=== PATIENT | male | born 1950 | race American Indian/Alaskan Native ===

== ENCOUNTER 2017-12-24 13:42 | Emergency (ER) | payer MEDICARE ==
[2017-12-24 13:42] VITALS: BMI 24.4
[2017-12-24 14:20] VITALS: TEMP 98.3; O2SAT 99
[2017-12-24 16:00] LABS: BASO % 1.2 % (0.0-2.0); EOS # 0.1 K/uL (0.0-0.7); EOS % 1.9 % (0.0-4.0); HEMOGLOBIN 14.4 g/dL (12.0-18.0); LYMPH % 52.9 % (20.0-40.0); MEAN CELL VOLUME 90.2 fl (80.0-94.0); MEAN CORPUSCULAR HGB CONC 33.3 g/dL (33.0-37.0); MEAN PLATELET VOLUME 9.1 fl (7.2-11.7); MONO # 0.4 K/uL (0.0-0.8); NEUT # 1.2 K/uL (1.8-7.0); NRBC % 0.1 % (0.0-0.0); RBC 4.79 Mil/uL (4.40-5.90); WHITE BLOOD COUNT 3.7 K/uL (4.8-10.8)
--- NOTE | 2017-12-24 16:12 | ED PDOC ---
Upper Extremity Pain/Injury Time Seen by Provider: 12/24/17 15:01 Chief Complaint (Nursing): Upper Extremity Problem/Injury Chief Complaint (Provider): Upper Extremity Problem/Injury History Per: Patient History/Exam Limitations: no limitations Onset/Duration Of Symptoms: Days (x3) Additional Complaint(s): Patient is a 67 y/o male with no significant past medical history who presents to the ED complaining of left arm pain, onset x3 day ago. Patient reports he has a pain in his upper left arm radiating into his forearm. Patient describes the pain as a throbbing, consistent pain that is not worsened or made better with anything. He denies any weakness, numbness, or recent injury. He also denies chest pain, difficulty breathing, or other medical complaints. 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 Past Medical History Reviewed: Historical Data, Nursing Documentation, Vital Signs Vital Signs: Last Vital Signs Temp 98.3 F 12/24/17 14:17 Pulse 64 12/24/17 14:17 Resp 16 12/24/17 14:17 BP 131/77 12/24/17 14:17 Pulse Ox 99 12/24/17 14:17 - Medical History PMH: No Chronic Diseases Denies: Depression - Surgical History Surgical History: No Surg Hx - Family History Family History: States: Unknown Family Hx - Home Medications Home Medications: Ambulatory Orders Medication Instructions Recorded Aspirin/Butalbital/Caffeine 1 cap PO QID PRN #12 cap 08/10/11 [Fiorinal 325 mg-50 mg-40 mg] Gabapentin 300 mg PO TID #21 capsule 12/24/17 - Allergies Allergies/Adverse Reactions: Allergies Allergy/AdvReac Type Severity Reaction Status Date / Time Penicillins Allergy SWELLING Verified 12/24/17 14:20 Review of Systems ROS Statement: Except As Marked, All Systems Reviewed And Found Negative Cardiovascular: Negative for: Chest Pain Respiratory: Negative for: Shortness of Breath Musculoskeletal: Positive for: Arm Pain Neurological: Negative for: Weakness, Numbness Physical Exam - Reviewed Nursing Documentation Reviewed: Yes Vital Signs Reviewed: Yes - Physical Exam Appears: Positive for: Well, Non-toxic, No Acute Distress Head Exam: Positive for: ATRAUMATIC, NORMAL INSPECTION, NORMOCEPHALIC Skin: Positive for: Normal Color, Warm, DRY Eye Exam: Positive for: EOMI, Normal appearance, PERRL ENT: Positive for: Normal ENT Inspection Neck: Positive for: Normal, Painless ROM, Supple Cardiovascular/Chest: Positive for: Regular Rate, Rhythm. Negative for: Murmur Respiratory: Positive for: Normal Breath Sounds. Negative for: Respiratory Distress Gastrointestinal/Abdominal: Positive for: Normal Exam, Soft. Negative for: Tenderness Extremity: Positive for: Normal ROM. Negative for: Pedal Edema, Deformity Neurologic/Psych: Positive for: Alert, Oriented. Negative for: Motor/Sensory Deficits - Laboratory Results Result Diagrams: 12/24/17 15:40 12/24/17 15:40 - ECG ECG Rhythm: Positive for: Normal QRS, Normal ST Segment, Sinus Bradycardia Rate: 55 O2 Sat by Pulse Oximetry: 99 (RA) Pulse Ox Interpretation: Normal - Progress Re-evaluation Time: 16:58 Condition: Re-examined, Improved Medical Decision Making Medical Decision Making: Time: 15:15 Initial Impression: left arm pain Differential includes peripheral neuropathy, atypical ACS Initial Plan: EKG BMP Troponin I CBC w/ diff Time: 15:56 EKG: Sinus bradycardia at rate of 55 bpm. Normal QRS no ST changes. Scribe Attestation: Documented by Greg Rodríguez acting as a scribe for Toma Reis MD Provider Scribe Attestation: All medical record entries made by the Scribe were at my direction and pers onally dictated by me. I have reviewed the chart and agree that the record accurately reflects my personal performance of the history, physical exam, medical decision making, and the department course for this patient. I have also personally directed, reviewed, and agree with the discharge instructions and disposition. Disposition - Clinical Impression Clinical Impression: Arm pain, left - Patient ED Disposition Is Patient to be Admitted: No Doctor Will See Patient In The: Office Counseled Patient/Family Regarding: Studies Performed, Diagnosis - Disposition Referrals: [facility] [place] [Outside] Disposition: Routine/Home Disposition Time: 16:59 Condition: GOOD Additional Instructions: JT WHITTEN, thank you for letting us take care of you today. Your provider was Toma Reis MD and you were treated for LT ARM PAIN. The emergency medical care you received today was directed at your acute symptoms. If you were prescribed any medication, please fill it and take as directed. It may take several days for your symptoms to resolve. Return to the Emergency Department if your symptoms worsen, do not improve, or if you have any other problems. Please contact your doctor or call one of the physicians/clinics you have been referred to that are listed on the Patient Visit Information form that is included in your discharge packet. Bring any paperwork you were given at discharge with you along with any medications you are taking to your follow up visit. Our treatment cannot replace ongoing medical care by a primary care provider outside of the emergency department. Thank you for allowing the [facility] team to be part of your care today. If you had an X-Ray or CT scan: A Radiologist will review the ED reading if any change in treatment is needed we will contact you. If you had a blood, urine, or wound culture: It will take several days for the results, if any change in treatment is needed we will contact you. If you had an STI test: It will take 48 hours for the results. Please call after 1 week if you have not heard back. Prescriptions: Gabapentin 300 mg PO TID #21 capsule Instructions: Muscle and Bone Pain (DC)
[2017-12-24 16:16] LABS: BLOOD UREA NITROGEN 13 mg/dl (9-20); CALCIUM 9.5 mg/dL (8.4-10.2); GFR NON-AFRICAN AMERICAN > 60
[2017-12-24 17:05] VITALS: BP 132/82; RESP 18
[2017-12-24 17:07] VITALS: PULSE 55
--- NOTE | 2017-12-25 06:55 | CARD ---
APPROVED REPORT Date of service: 12/24/2017 EKG Measurement Heart [id number] <Conclusion> Sinus bradycardia Otherwise normal ECG
== END 2017-12-24 17:11 | disposition home or self-care (01) ==
LOC: H.ER 13:42
DX: M79.602 Pain in left arm (principal); Z88.0 Allergy status to penicillin